=== PATIENT | male | born 1985 | race Two or more races ===

== ENCOUNTER 2019-12-12 09:02 | Emergency (ER) | payer OTHER ==
[~2019-12-12] VITALS: Ht 177.8 cm; Wt 88.5 kg
[2019-12-12 09:14] VITALS: Ht 177.8 cm; Wt 88.5 kg
[2019-12-12 10:41] VITALS: BP 135/91
== END 2019-12-12 10:41 | disposition home or self-care (01) ==
LOC: ED 09:02
DX: R00.2 Palpitations (principal); J45.909 Unspecified asthma, uncomplicated